=== PATIENT | male | born 1940 | race Caucasian/White ===

== ENCOUNTER 2018-09-21 10:17 | Outpatient (CLI) | payer MEDICARE, OTHER | END 2018-09-21 23:59 | disposition home or self-care (01) | LOC: STAR 10:17 | PROVIDERS: ATTEND Orthopaedic Surgery | DX: Z01.818 Encounter for other preprocedural examination (principal); M16.11 Unilateral primary osteoarthritis, right hip | CPT/HCPCS: 36415; 80053; 81003; 85025; 87081; 87806; 93005; G0475 ==

== ENCOUNTER 2018-10-01 05:32 | Inpatient (IN) | payer MEDICARE, OTHER ==
[~2018-10-01] VITALS: Ht 172.7 cm; Wt 90.8 kg
[2018-10-03 07:56] VITALS: BP 147/76
== END 2018-10-03 11:00 | disposition home or self-care (01) | DRG 470 ==
LOC: ORIP 05:32 → 4NOR 10:48 → DCLOUNGE 10-03 10:38
PROVIDERS: ADMIT Orthopaedic Surgery; ATTEND Orthopaedic Surgery
PROC: 0SR90JZ Replacement of Right Hip Joint with Synthetic Substitute, Open Approach (ICD-10-PCS; principal; 2018-10-01)
DX: M16.11 Unilateral primary osteoarthritis, right hip (principal); N40.0 Benign prostatic hyperplasia without lower urinary tract symptoms; E78.5 Hyperlipidemia, unspecified; I10 Essential (primary) hypertension; Z88.8 Allergy status to other drugs, medicaments and biological substances; Z98.52 Vasectomy status
CPT/HCPCS: 36415; 86850; 86900; C1713; G0378; J0171; J0690; J1100; J1885; J2274; J2405; J2704; J2795; J3010; J3370; C1776; J0330; J7120

== ENCOUNTER 2020-11-26 17:42 | Emergency (ER) | payer MEDICARE, OTHER ==
[~2020-11-26] VITALS: Ht 172.7 cm; Wt 82.0 kg
[2020-11-26 17:50] VITALS: BP 128/57
== END 2020-11-26 20:59 | disposition home or self-care (01) ==
LOC: ED 18:59
DX: M51.36 Other intervertebral disc degeneration, lumbar region (principal); R10.9 Unspecified abdominal pain; M25.551 Pain in right hip; Z88.5 Allergy status to narcotic agent
CPT/HCPCS: 72110; 72131; 73502; 74176; 96372; 99285; J1885